=== PATIENT | male | born 1995 | race Caucasian/White ===

== ENCOUNTER 2020-04-25 17:37 | Emergency (ER) | payer BC, SELFPAY ==
[2020-04-25 17:42] VITALS: BP 147/88; PULSE 90; RESP 18; TEMP 36.6; O2SAT 100
--- NOTE | 2020-04-25 18:04 | ED.GENADULT ---
HPI - General Adult General Chief complaint: Urogenital-Male <KATE Padilla - Last Filed: 05/01/20 18:51> Stated complaint: pain/swollen testicles/penis <KATE Padilla - Last Filed: 05/01/20 18:51> Time Seen by Provider: 04/25/20 18:04 <KATE Padilla - Last Filed: 05/01/20 18:51> Source: patient and RN notes reviewed <KATE Padilla - Last Filed: 05/01/20 18:51> Mode of arrival: ambulatory <KATE Padilla - Last Filed: 05/01/20 18:51> Limitations: no limitations <KATE Padilla - Last Filed: 05/01/20 18:51> History of Present Illness HPI narrative: 24-year-old male presents with complaints of testicular pain for the past 3 days. Aron says symptoms started on 04/22/20 in the am, he went to the bathroom and noted swelling, pain to testicles with swelling going down into bilateral lower extremities. Denies dysuria. No treatment.? Denies fever or chills.? Denies nausea, vomiting, and abdominal pain.? LBM this on 04/24/20 without difficulty. No genital discharge.? No concerns for STDs. No flank pain.? No exacerbating factors urinating.? Denies hematuria or genital bleeding. Remains active. The patient reports he have not been diagnosed with COVID-19. The patient reports he is not waiting for the results of a COVID-19 lab test. The patient reports he do not have fever, chills, weakness, or fatigue. The patient reports he do not have a new or worsening cough or shortness of breath. Denies chest pain. The patient reports he do not have any loss of taste, rhinorrhea, congestion, sore throat, and diarrhea. Tolerating po intake well. Denies recent traveling. Denies concerns for COVID-19 or exposures been home with limited outdoor exposure except for essential household needs, work, and return home. At this time, patient is not suspected of having COVID-19. Some parts of this dictation were generated by voice recognition software and may contain typographical and/or grammatical inaccuracies. <KATE Padilla - Last Filed: 05/01/20 18:51> Related Data Allergies/adverse reactions: Allergies Allergy/AdvReac Type Severity Reaction Status Date / Time No Known Allergies Allergy Verified 04/25/20 17:54 <KATE Padilla - Last Filed: 05/01/20 18:51> Review of Systems Review of Systems: Narrative: CONSTITUTIONAL: Denies fever, chills, sweats. EYES: Denies visual changes, redness, discharge. ENT: Denies rhinorrhea, congestion, sore throat, otalgia. CARDIOVASCULAR: Denies chest pain, palpitations, edema. RESPIRATORY: Denies dyspnea, wheezing, cough GASTROINTESTINAL: Denies abdominal pain, nausea, vomiting, diarrhea. GENITOURINARY: Complains of testicular pain and swelling. Denies dysuria, hematuria, abnormal discharge. SKIN: Denies rash or itching. MUSCULOSKELETAL: Denies acute back pain, joint pain, or myalgia. NEUROLOGIC: Denies numbness or focal weakness. PSYCHIATRIC: Denies anxiety or depression. All other systems reviewed are negative, except as documented in HPI and below. <KATE Padilla - Last Filed: 05/01/20 18:51> [facility] Past Medical History Medical History: Medical History (Updated 04/26/20 @ 00:00 by Gareth Diaz) No significant past medical history <KATE Padilla - Last Filed: 05/01/20 18:51> Surgical History Surgical History: Surgical History (Updated 04/25/20 @ 18:19 by KATE Padilla) No significant past surgical history <KATE Padilla - Last Filed: 05/01/20 18:51> Family History Family History: Family History (Updated 04/25/20 @ 18:19 by KATE Padilla) Father Alive and well Mother Alive and well <KATE Padilla - Last Filed: 05/01/20 18:51> Social History Social History: Social History (Updated 04/25/20 @ 18:22 by KATE Padilla) Smoking status: Current every day smoker Tobacco typ
== END 2020-04-25 18:30 | disposition home or self-care (01) ==
PROVIDERS: Emergency Provider Nurse Practitioner Family
DX: N45.1 Epididymitis (principal); F17.200 Nicotine dependence, unspecified, uncomplicated
CPT/HCPCS: 81003; 87077; 87086; 87088; 99213; G0463